=== PATIENT | male | born 1985 | race Two or more races ===

== ENCOUNTER 2022-01-19 14:16 | Emergency (ER) | payer OTHER ==
[~2022-01-19] VITALS: Ht 177.8 cm; Wt 90.7 kg
--- NOTE | 2022-01-19 14:18 | NUR ---
[address] C/O /HEROIN/FENTANYL OD. PER EMS AAOX4 ON SCENE. BG 86. PT ATTACHED TO MONITOR, NO RESP DISTRESS NOTED. VITALS WITHIN NORMAL LIMITS. AWAITING MD ORDERS.
[2022-01-19 14:20] VITALS: BP 146/66
[2022-01-19] MEDS ORDERED: NALO4SPR BNOSTRILS (14:47)
--- NOTE | 2022-01-19 15:11 | NUR ---
Patient discharged to home in stable condition. Written and verbal after care instructions given. Patient verbalizes understanding of instruction.
== END 2022-01-19 15:11 | disposition home or self-care (01) ==
LOC: ER 14:19
DX: T40.601A Poisoning by unspecified narcotics, accidental (unintentional), initial encounter (principal); Y92.410 Unspecified street and highway as the place of occurrence of the external cause

== ENCOUNTER 2023-01-05 01:55 | Emergency (ER) | payer OTHER ==
[~2023-01-05] VITALS: Ht 177.8 cm; Wt 56.7 kg
[~2023-01-05 01:55] MED LIST: NALO4SPR BNOSTRILS
[2023-01-05] MEDS ORDERED: VANCOMYCIN 1 GM VIAL ONE (02:29)
[2023-01-05] MEDS ORDERED: VANCOMYCIN 1 GM in IV D5W 250 ML IV ONE (02:30)
--- NOTE | 2023-01-05 02:49 | NUR ---
bibs. to er bed 13. aaox4. not in resp distress. ambualtory on steady gait. complaining of nilat lower leg pain swelling which he states that has been going on for atleast a month. pt was noted with bilat leg swelling and redness. noted open wounds on the r brar. pt is afebrile. was at the bedside for eval. orders received, noted and carried out. at this time pt is unabe to provide urine.
--- NOTE | 2023-01-05 02:51 | NUR ---
covid swab done and sent to lab
[2023-01-05 02:59] LABS: BASOPHILS % (AUTO) 0.4 % (0.0-2.0); EOSINOPHILS % (AUTO) 1.4 % (0.0-6.0); HEMATOCRIT 33 % (39-51); HEMOGLOBIN 10.8 g/dL (13.5-17.5); LYMPHOCYTES # (AUTO) 2.6 K/uL (0.8-4.8); LYMPHOCYTES % (AUTO) 25.1 % (20.0-44.0); MEAN CORPUSCULAR HGB CONC 33 g/dl (31.0-36.0); MEAN CORPUSCULAR VOLUME 89 fL (80-96); MONOCYTES # (AUTO) 1.1 K/uL (0.1-1.30); MONOCYTES % (AUTO) 10.2 % (2.0-12.0); NEUTROPHILS # (AUTO) 6.7 K/uL (1.8-8.9); NEUTROPHILS % (AUTO) 62.9 % (43.0-81.0); PLATELET COUNT (AUTO) 227 K/uL (150-450); RED BLOOD CELL COUNT(AUTO) 3.72 MIL/uL (4.5-6.0); WHITE BLOOD COUNT (AUTO) 10.6 K/uL (4.3-11.0)
[2023-01-05 03:33] LABS: CALCIUM, SERUM 8.6 mg/dL (8.5-10.1); CARBON DIOXIDE 29 mmol/L (21-32); CHLORIDE 101 mmol/L (98-107); CREATININE 0.7 mg/dL (0.6-1.3); GLUCOSE 121 mg/dL (74-106); POTASSIUM 3.1 mmol/L (3.5-5.1); SODIUM SERUM 137 mmol/L (136-145); UREA NITROGEN, BLOOD 8 mg/dL (7-18)
[2023-01-05 03:38] LABS: ALANINE AMINOTRANSFERASE 25 U/L (12-78); ALBUMIN 2.8 g/dL (3.4-5.0); ALKALINE PHOSPHATASE 72 U/L (46-116); ASPARTATE AMINOTRANSFERASE 13 U/L (15-37); BILIRUBIN,DIRECT 0.1 mg/dL (0.0-0.2); BILIRUBIN,TOTAL 0.5 mg/dL (0.2-1.0); TOTAL PROTEIN, SERUM 6.8 g/dL (6.4-8.2)
--- NOTE | 2023-01-05 04:49 | NUR ---
DR. BARRY FREY PRES ON THE PHONE WITH DR. YANES
--- NOTE | 2023-01-05 06:12 | NUR ---
PT STILL UNABLE TO PROVIDE URINE SAMPLE AT THIS TIME.
--- NOTE | 2023-01-05 06:14 | NUR ---
ROOM ACCEPTED TO [facility] ROOM 2269 PER CM JC. PHONE NUMBER FOR REPORT IS . WAITING FOR JC MAC TO GIVE US TRANSPORT INFO.
--- NOTE | 2023-01-05 06:25 | NUR ---
TELEPHONE CALL TO TK PFEIFFER AT [phone] TO GIVE REPORT ON PT, HOWEVER, WAS TOLD TO CALL BACK IN 20 MINS.
--- NOTE | 2023-01-05 06:50 | NUR ---
[facility] FOR TRANSPORTATION IS APPROX 10 AM.
--- NOTE | 2023-01-05 06:52 | NUR ---
TELEPHONE CALL TO SARATOGA AT [phone] TO GIVE REPORT ON PT, WAS ADVISED TO CALL AFTER CHANGE OF SHIFT IN 30 MINUTES. RECEIVING RN IS GIO.
--- NOTE | 2023-01-05 06:54 | NUR ---
AMBULANCE COMPANY TO PICK PATIENT UP AND TRANSFER TO [facility] IS [place] AT 10AM
--- NOTE | 2023-01-05 08:09 | NUR ---
gave report to [facility] RICK TOBIN
[2023-01-05] MEDS ORDERED: SULF1TAB48 PO (10:24)
[2023-01-05] MEDS ORDERED: CEPH500C2 PO (10:24)
--- NOTE | 2023-01-05 11:04 | NUR ---
Patient refused to be transported to [facility] and stated he would leave hosptial. Refused to sign AMA form. MD spoke with patient who reiterated that he absolutely did not want to be transferred to [facility]. Saline lock was removed, no bleeding noted. Patient was given discharge prescriptions for oral antibiotics and were sent electronically to [facility] pharmacy in [place] per patient request. Patient ambulated out of hosptial.
[2023-01-05 11:06] VITALS: BP 111/43
== END 2023-01-05 11:07 | disposition left against medical advice (07) ==
LOC: EDUNIT# 01:55 → ER 02:12
DX: L03.116 Cellulitis of left lower limb (principal); F19.10 Other psychoactive substance abuse, uncomplicated; F17.200 Nicotine dependence, unspecified, uncomplicated; Z79.899 Other long term (current) drug therapy; Z20.822 Contact with and (suspected) exposure to COVID-19
CPT/HCPCS: 99285; 96365; 93971; 71045; 87426; 93005; 84145; 85025; 80048; 87040 ×2; 83605; 80076; 36415; 84484; 85730; J3370; A4223; C9803

== ENCOUNTER 2023-01-18 16:24 | Emergency (ER) | payer OTHER ==
[~2023-01-18] VITALS: Ht 170.2 cm; Wt 63.5 kg
[~2023-01-18 16:24] MED LIST changes: +CEPH500C2 PO; +SULF1TAB48 PO
[2023-01-18 16:35] VITALS: BP 112/89
[2023-01-18] MEDS ORDERED: CEPH500C2 PO (17:05)
[2023-01-18] MEDS ORDERED: SULF1TAB48 PO (17:05)
== END 2023-01-18 17:15 ==
LOC: ER 16:26
DX: L03.116 Cellulitis of left lower limb (principal); L03.115 Cellulitis of right lower limb; F17.200 Nicotine dependence, unspecified, uncomplicated